=== PATIENT | female | born 1960 | race Caucasian/White ===

== ENCOUNTER 2017-03-21 14:36 | Emergency (ER) | payer OTHER ==
[~2017-03-21] VITALS: Ht 157.5 cm; Wt 58.2 kg
[~2017-03-21 14:36] MED LIST: AMIT10TA6 PO; CITA20TA PO; GABA-500 PO; OXYC-474 PO
--- NOTE | 2017-03-21 14:41 | ED.REPORT ---
HPI-General Illness Date of Service Mar 21, 2017 ED Provider: The patient is a 57 year old female with history of alcohol abuse, depression, anxiety, hypertension, and fibromyalgia, who presents to the emergency department requesting help with alcohol detox. The patient relapsed 2 weeks ago. Her last drink was 5 minutes prior to arrival. She has been through withdrawal in the past. She has been sober for years at a time in the past. The last time she was in detox was in 2011. She denies history of alcohol seizures. She smokes tobacco but does not use any illicit drugs. She is currently living with her ex . The patient also mentions that she has been feeling depressed and suicidal. This seems to be associated with her drinking, she does not feel suicidal when she is not drinking. The patient states the other day she was laying in the bath and thought about killing herself in that way but didn't have the courage to act on it. She knows that if she tried to kill or harm herself it would hurt her family. Nursing Notes Stated Complaint: DETOX Nursing Notes Reviewed: Yes Allergies: Coded Allergies: No Known Allergies (Unverified , 02/19/16) Scheduled Amitriptyline (Amitriptyline) 10 Mg Tablet 10 MG PO HS Citalopram Hydrobromide (Celexa) 20 Mg Tablet 20 MG PO DAILY Gabapentin (Gabapentin) 100 Mg Capsule 100 MG PO DAILY Scheduled PRN Oxycodone (Roxicodone) 5 Mg Tablet 5 MG PO Q4H PRN PRN For Pain General Time Seen by MD: 14:41 Chief Complaint Other (alcohol detox) Hx Obtained From: Patient Arrived By: Walk-in Sudden in Onset?: No Onset Occurred: More than a week ago... Symptom Duration: Since onset Severity: Current: Moderate Severity: Maximum: Severe Recent Healthcare: No recent hospitalization Similar Sx Previous: Yes Past Medical History Past Medical History Anxiety Depression Fibromyalgia Hypertension Past Surgical History None Family History Noncontributory Smoking History Unknown if Ever Smoker Social History Living with her ex Alcohol Use: >5 per day Drug Use: Denies drug use Other Social History: , Local resident Ambulatory Status Independent Review of Systems Full Review of Systems Psychiatric: Reports: Depression, Stress, Suicidal ideation Complete sys rev & neg: except as marked. Physical Exam Vital Signs Vital Signs Date Time Temp Pulse Resp B/P Pulse Ox O2 Delivery O2 Flow Rate FiO2 7/14/17 17:44 36.7 112 20 118/69 98 Room Air 03/21/17 14:57 36.9 123 12 120/74 94 Room Air Initial VS: Reviewed Head / Eyes: Atraumatic, Normocephalic, PERRL ENT: Mucous membranes moist, Conjunctiva normal, No scleral icterus Neck: Supple, Non-tender, Full range of motion Respiratory: Breath sounds normal, Clear to auscultation, No respiratory distress Cardiovascular: Regular rate & rhythm, Heart sounds normal, Intact distal pulses Abdomen / GI: Soft, Non-tender, No guarding, No rebound, No distention Extremities: Vascular intact, Neuro intact, No swelling, No tenderness Skin: Warm, Dry, No cyanosis General/Constitutional: Awake, Alert, Cooperative Neurologic: Oriented X3, Speech NL Mildly tremulous Abnormal Mood/Affect: Positive: Flat affect Vague thoughts of suicide but she states she wouldn't followup through with it. Interpretation & Diagnostics Interpretation & Diagnostics: Breathalyzer: 0.126 Lab Results Interpretation Test 03/21/17 16:56 Hold Urine Received (Received) Re-Eval/Medical Decision Med Decision/Clinical Course Patient seems to be a good candidate for [facility]. Will arrive at 9 PM. Her spouse agrees to take her there. Ativan taper prescribed. 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 Time of Eval: 16:54 Re-Evaluation/Progress Note: Discussed plan for discharge to [facility] at 9 PM. Consultation #1: Consulted With: bead worker sewing Call Returned at: 16:00 Note: ED social media intern will see the patient. Consultation #2: Consulted With: bead worker sewing Call Returned at: 16:12 Note: The patient is currently speaking with [facility]. If they have a bed she will go to there. Consultation #3: Consulted With: bead worker sewing Call Returned at: 16:44 Note: She has a bed at [facility]. Counseled Regarding: Diagnosis, Lab results, Need for follow-up, When/why to return to ED Discharge & Departure Primary Impression: Alcohol abuse Disposition: Home (crisis respite) Discharge Condition All VS Reviewed: Yes Condition: Stable Patient Instructions: Abuse of Alcohol (ED) Additional Instructions: Thank you for entrusting us with your care today. You have a bed at [facility] at 9 PM tonight. Do not drink alcohol prior to going to [facility]. Use the medication as prescribed for withdrawals. Return to the emergency department for any new or concerning symptoms. Referrals: Gallo Hall MD (PCP) Scribe Attestation Portions of this note were transcribed by Serene Louis. I, Dr. Harper personally performed the history, physical exam and medical decision-making; I reviewed and confirmed the accuracy of the information in the transcribed note. Signed by: Gigi Menchaca, 03/21/17 at 1800. copies to: Gallo Hall MD, Timothy S DO Mar 21, 2017 14:41 Serene Louis Mar 21, 2017 14:45
[2017-03-21 14:57] VITALS: BP 120/74; PULSE 123; RESP 12; O2SAT 94
[2017-03-21] MEDS ORDERED: LORazepam 2 mg Tablet PO ONE ×2 (16:15→19:15)
[2017-03-21] MEDS ORDERED: LORazepam 2 mg Tablet PO PRN (16:45)
[2017-03-21 17:44] VITALS: BP 118/69; PULSE 112; RESP 20; O2SAT 98
[2017-03-21] MEDS ORDERED: _LORazepam 2 MG Tablet PO SCH (18:50)
[2017-03-21 20:08] VITALS: BP 113/51; PULSE 113; RESP 20; O2SAT 96
[2017-03-21 20:30] VITALS: BP 113/51; PULSE 113; RESP 20; O2SAT 96
== END 2017-03-21 20:32 | disposition home or self-care (01) ==
LOC: SED 14:36
DX: F10.120 Alcohol abuse with intoxication, uncomplicated (principal); I10 Essential (primary) hypertension; M79.7 Fibromyalgia; F41.8 Other specified anxiety disorders